=== PATIENT | female | born 1940 | race Caucasian/White ===

== ENCOUNTER 2017-02-23 07:23 | Day surgery (SDC) | payer MEDICARE, BC ==
[~2017-02-23 07:23] MED LIST: Midazolam 1 MG/ML 2 ML SDV ONE; Propofol 200 MG/20 ML SDV ONE; fentaNYL 100 MCG/2 ML SDV ONE
[2017-02-23] MEDS ORDERED: Dextrose 5%-Lactated Ringers 1,000 ML IV SCH (08:00)
[2017-02-23] MEDS ORDERED: Glycopyrrolate 0.2 MG/ML 2 ML SYRINGE IVPUSH ONE (08:45)
[2017-02-23 11:08] VITALS: BP 150/91
--- NOTE | 2017-03-02 09:29 | OR ---
DATE OF PROCEDURE: 02/23/2017 PREOPERATIVE DIAGNOSIS: Dysphagia referable to the distal esophagus. POSTOPERATIVE DIAGNOSES: 1. Dysphagia associated with intact Christophe fundoplication effect without inflammation or stricturing at the distal esophagus. 2. Mild antral gastritis. OPERATIVE PROCEDURE: Esophagogastroduodenoscopy with: 1. Biopsies of antrum for CLOtest (37864). 2. Dilation of distal esophagus (87858). ANESTHESIA: IV sedation. INDICATION FOR PROCEDURE: This is a 76-year-old status post Christophe fundoplication. Recently, she had some increasing problems with dysphagia referable to the distal esophagus. Plan is to proceed with upper GI endoscopy with biopsies and/or dilation as indicated. Potential risks including bleeding and perforation were discussed, and the patient wishes to proceed. DETAILS OF PROCEDURE: The patient was taken to the operating room and placed in a left lateral decubitus position. IV sedation was administered, after which the upper GI endoscope was passed orally through the length of the esophagus into the stomach with retroflexion view of the fundus, and thereafter through the pyloric channel and into the duodenum. Findings included normal hypopharynx, larynx, upper esophageal sphincter, and esophageal body. There was no dilation or retained food within the esophagus. At the EG junction, a Christophe effect was present, but this was completely soft and pliable, and the scope easily was able to inflate the distal esophagus, such that one could peer from that point into the stomach through the area of fundoplication. There was no significant inflammation at the fundoplication either. With the scope in the stomach, it was then retroflexed and revealed an intact Christophe effect. The remainder of the stomach showed some mild redness in the pre- pyloric area. Pyloric channel and duodenum to the junction of the third and fourth portions were unremarkable. At this point, biopsy was obtained from the antrum and sent for CLOtest for H. pylori. Minimal bleeding from the biopsy sites was seen. Due to the fact that esophageal dilation might somehow improve the dysphagia, a guidewire was passed into the stomach and the gastroscope was withdrawn, leaving the guidewire in place. Over this, a 54-[place] Savary dilator was placed across the esophagus and into the stomach and held there for one minute. The dilator and wire were then removed and the procedure concluded. There were no evident complications. We will have Dietary see the patient regarding eating behavior. Given there was no stricturing, narrowing, or significant inflammation at the site of Christophe fundoplication, she probably needs to be chewing her food somewhat more thoroughly, and drinking some liquids along with meals and such, to facilitate the passage of the food. Rodney Ramirez MD /[id number]
== END 2017-02-23 11:45 | disposition home or self-care (01) ==
LOC: JP.SDS 07:23
PROVIDERS: ATTEND Surgery
DX: K29.50 Unspecified chronic gastritis without bleeding (principal); I25.10 Atherosclerotic heart disease of native coronary artery without angina pectoris; I10 Essential (primary) hypertension; E78.5 Hyperlipidemia, unspecified; E11.9 Type 2 diabetes mellitus without complications; G47.33 Obstructive sleep apnea (adult) (pediatric); J44.9 Chronic obstructive pulmonary disease, unspecified; Z98.890 Other specified postprocedural states; Z88.1 Allergy status to other antibiotic agents; Z88.2 Allergy status to sulfonamides; Z88.8 Allergy status to other drugs, medicaments and biological substances
CPT/HCPCS: 43239; 43248; 87081; J2250; J2704; J3010; J7042

== ENCOUNTER 2017-10-26 10:27 | Emergency (ER) | payer MEDICARE, BC ==
[2017-10-26] MEDS ORDERED: Ertapenem 1 GM in Sodium Chloride 0.9% 100 ML IV ONE (11:30)
[2017-10-26] MEDS ORDERED: Lactated Ringers 1,000 ML IV SCH (11:45)
--- NOTE | 2017-10-26 11:49 | EDM.PDOC ---
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 She states over the last couple days she has developed diarrhea significantly worse starting this morning she has had 8 loose stools states she is so weak she cannot take care of herself and wants to be admitted to the hospital. Review of systems is difficult to obtain as she is positive for every sign or symptom admits to having teeth itching or discomfort with her dentures Left Feet Pain Score (Numeric/FACES): 3 - Related Data Allergies Allergy/AdvReac Type Severity Reaction Status Date / Time Sulfa (Sulfonamide Allergy Intermediate Shortness Verified 10/26/17 10:54 Antibiotics) of Breath blue dye Allergy Cannot Verified 10/26/17 10:54 Remember glimepiride [From Amaryl] Allergy Wheezing Verified 10/26/17 10:54 pravastatin Allergy Abdominal Verified 10/26/17 10:54 Pain Zczceqr-Dey-Cua Reductase Allergy Cannot Verified 10/26/17 10:54 Inhibitor Remember azithromycin AdvReac Diarrhea Verified 10/26/17 10:54 metformin AdvReac Diarrhea Verified 10/26/17 10:54 tetracycline [Tetracycline] AdvReac Nausea and Verified 10/26/17 10:54 Vomiting Home Meds: Home Meds Acetaminophen/Diphenhydramine [Tylenol Pm Ex-Strength Gelcap] 1 each PO BEDTIME 01/06/14 [History] Azelastine [Astelin Nasal Soln] 1 inhalation REFUGIO BID PRN 01/06/14 [History] Levalbuterol HCl [Xopenex] 0.3 mg NEB BEDTIME PRN 01/06/14 [History] Levalbuterol Tartrate [Xopenex HFA Inh] 2 puff REFUGIO Q4HR PRN 01/06/14 [History] Levothyroxine Sodium [Levoxyl] 50 mcg PO DAILY 01/06/14 [History] Metoprolol Tartrate [Lopressor] 200 mg PO BID 01/06/14 [History] Montelukast [Singulair] 10 mg PO DAILY PRN 01/06/14 [History] SUMAtriptan [Imitrex] 50 mg PO BID PRN 01/06/14 [History] clonazePAM [Klonopin] 0.5 mg PO BID PRN 01/06/14 [History] Loratadine [Claritin] 10 mg PO DAILY PRN 11/24/14 [History] Sertraline [Zoloft] 100 mg PO DAILY 11/24/14 [History] Atropine/Diphenoxylate [Diphenoxylate-Atropine] 1 tab PO DAILY PRN 02/22/16 [ History] Bismuth Subsalicylate [Bismatrol] 2 tab PO DAILY PRN 02/22/16 [History] Fluticasone Propionate [Flonase] 2 spray REFUGIO DAILY 02/22/16 [History] Fluticasone Propionate [Flovent] 2 puff INH BID PRN 02/22/16 [History] Nortriptyline 10 mg PO BEDTIME 10/26/17 [History] Past Medical History HEENT History: Reports: Allergic Rhinitis, Cataract, Impaired Vision, Sinusitis Cardiovascular History: Reports: CAD, Heart Murmur, Hypertension, [place] Respiratory History: Reports: Asthma, Bronchitis, Recurrent, COPD, Sleep Apnea Gastrointestinal History: Reports: Chronic Diarrhea, Colon Polyp, Diverticulosis , GERD, Hepatitis, Hiatal Hernia Other Gastrointestinal History: colitis 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: Polycystic Ovaries, Musculoskeletal History: Reports: Arthritis, Back Pain, Chronic, Fibromyalgia, Osteoarthritis Neurological History: Reports: Migraines, Neuropathy, Diabetic, Neuropathy, Peripheral Endocrine/Metabolic History: Reports: Diabetes, Type II, Hypothyroidism, Obesity /BMI 30+ Hematologic History: Reports: Blood Transfusion(s) Oncologic (Cancer) History: Reports: Breast - Infectious Disease History Infectious Disease History: Reports: C-Difficile, Measles, Mumps, Rubella, Shingles - Past Surgical History HEENT Surgical History: Reports: Cataract Surgery GI Surgical History: Reports: Colonoscopy, EGD, Christophe Fundoplication Female Surgical History: Reports: Breast Biopsy, Section, Hysterectomy, Mastectomy Musculoskeletal Surgical History: Reports: Arthroscopic Knee, Knee Replacement Oncologic Surgical History: Reports: Mastectomy Other Oncologic Surgeries/Procedures: both Social & Family History - Tobacco Use Smoking Status *Q: Never Smoker Second Hand Smoke Exposure: No - Caffeine Use Caffeine Use: Reports: Coffee - Alcohol Use Days Per Week of Alcohol Use: 0 - Recreational Drug Use Recreational Drug Use: No ED ROS GENERAL - Review of Systems Review Of Systems: Unable To Obtain (Positive for a review of systems difficult to obtain) ED EXAM, GI/ABD - Physical Exam Exam: See Below Text/Narrative:: General: Elderly female, not in any distress, alert and oriented x3 HEENT: head is atraumatic normocephalic, eyes pupils equal round reactive to light, sclera clear no conjunctivitis appreciated. Ears tympanic membranes clear and [place] landmarks and light reflex are present bilaterally canals are clear. Nose no septal deviation, nares are clear, no blood present. Mouth mucosa is moist and pink no erythema or exudate noted in soft palate, tongue is midline uvula is midline, dentures in place Neck: Supple no thyromegaly no tracheal deviation. Nodes: Cervical nodes subclavicular nodes nontender no palpable lymphadenopathy noted. Lungs: clear to auscultation bilaterally with symmetrical respirations, no adventitious noise appreciated. CV: Regular rate and rhythm S1 and S2 appreciated no murmurs rubs or gallops noted. Abdomen: Soft, nontender, no palpable masses or organomegaly appreciated, no distention no guarding bowel sounds are present, . Neuro: Cranial nerves II through XII grossly intact Skin: Warm and dry, intact chronic wound left ankle Extremities: No lower extremity edema appreciated, left ankle is dressed and packed daily Course - Vital Signs Last Recorded V/S: Last Vital Signs Temp 98.1 F 10/26/17 14:46 Pulse 97 10/26/17 14:46 Resp 17 10/26/17 14:46 BP 177/78 H 10/26/17 14:46 Pulse Ox 97 10/26/17 14:46 - Orders/Labs/Meds Orders: Active Orders 24 hr Category Date Time Status Lactated Ringers [Ringers, Lactated] 1,000 ml Med 10/26/17 11:45 Active IV ASDIRECTED Medication Orders Lactated Ringer's (Ringers, Lactated) 1,000 mls @ 500 mls/hr IV ASDIRECTED TEDDY Last Admin: 10/26/17 12:07 Dose: 500 mls/hr Labs: Laboratory Tests 10/26/17 10/26/17 10/26/17 Range/Units 11:43 11:43 11:43 WBC 9.4 (4.5-11.0) K/uL RBC 4.43 (3.30-5.50) M/uL Hgb 12.9 (12.0-15.0) g/dL Hct 39.4 (36.0-48.0) % MCV 89 (80-98) fL MCH 29 (27-31) pg MCHC 33 (32-36) % Plt Count 206 (150-400) K/uL Neut % (Auto) 70 H (36-66) % Lymph % (Auto) 16 L (24-44) % [place] % (Auto) 11 H (2-6) % Eos % (Auto) 3 (2-4) % Baso % (Auto) 1 (0-1) % Sodium 137 L (140-148) mmol/L Potassium 3.9 (3.6-5.2) mmol/L Chloride 101 (100-108) mmol/L Carbon Dioxide 27 (21-32) mmol/L Anion Gap 12.9 (5.0-14.0) mmol/L BUN 15 (7-18) mg/dL Creatinine 0.7 (0.6-1.0) mg/dL Est Cr Clr Drug Dosing 52.40 mL/min Estimated GFR (MDRD) > 60 (>60) Glucose 104 (74-106) mg/dL Lactic Acid 1.8 (0.4-2.0) mmol/L Calcium 9.9 (8.5-10.1) mg/dL Total Bilirubin 0.4 (0.2-1.0) mg/dL AST 20 (15-37) U/L ALT 21 (12-78) U/L Alkaline Phosphatase 62 (46-116) U/L Troponin I (0.000-0.056) ng/mL Total Protein 7.9 (6.4-8.2) g/dL Albumin 3.8 (3.4-5.0) g/dL Globulin 4.1 H (2.3-3.5) g/dL Albumin/Globulin Ratio 0.9 L (1.2-2.2) Lipase 213 (73-393) U/L Urine Color Urine Appearance Urine pH (4.5-8.0) Ur Specific [place] (1.008-1.030) Urine Protein (NEGATIVE) mg/dL Urine Glucose (UA) (NEGATIVE) mg/dL Urine Ketones (NEGATIVE) mg/dL Urine Occult Blood (NEGATIVE) Urine Nitrite (NEGATIVE) Urine Bilirubin (NEGATIVE) Urine Urobilinogen (NORMAL) mg/dL Ur Leukocyte Esterase (NEGATIVE) Urine RBC (0-5) Urine WBC (0-5) Ur Epithelial Cells Amorphous Sediment Urine Bacteria Urine Mucus 10/26/17 10/26/17 Range/Units 11:46 12:01 WBC (4.5-11.0) K/uL RBC (3.30-5.50) M/uL Hgb (12.0-15.0) g/dL Hct (36.0-48.0) % MCV (80-98) fL MCH (27-31) pg MCHC (32-36) % Plt Count (150-400) K/uL Neut % (Auto) (36-66) % Lymph % (Auto) (24-44) % [place] % (Auto) (2-6) % Eos % (Auto) (2-4) % Baso % (Auto) (0-1) % Sodium (140-148) mmol/L Potassium (3.6-5.2) mmol/L Chloride (100-108) mmol/L Carbon Dioxide (21-32) mmol/L Anion Gap (5.0-14.0) mmol/L BUN (7-18) mg/dL Creatinine (0.6-1.0) mg/dL Est Cr Clr Drug Dosing mL/min Estimated GFR (MDRD) (>60) Glucose (74-106) mg/dL Lactic Acid (0.4-2.0) mmol/L Calcium (8.5-10.1) mg/dL Total Bilirubin (0.2-1.0) mg/dL AST (15-37) U/L ALT (12-78) U/L Alkaline Phosphatase (46-116) U/L Troponin I < 0.017 (0.000-0.056) ng/mL Total Protein (6.4-8.2) g/dL Albumin (3.4-5.0) g/dL Globulin (2.3-3.5) g/dL Albumin/Globulin Ratio (1.2-2.2) Lipase (73-393) U/L Urine Color Yellow Urine Appearance Clear Urine pH 6.0 (4.5-8.0) Ur Specific [place] 1.010 (1.008-1.030) Urine Protein Negative (NEGATIVE) mg/dL Urine Glucose (UA) Normal (NEGATIVE) mg/dL Urine Ketones Negative (NEGATIVE) mg/dL Urine Occult Blood Negative (NEGATIVE) Urine Nitrite Negative (NEGATIVE) Urine Bilirubin Negative (NEGATIVE) Urine Urobilinogen Normal (NORMAL) mg/dL Ur Leukocyte Esterase Negative (NEGATIVE) Urine RBC Not seen (0-5) Urine WBC Not seen (0-5) Ur Epithelial Cells Not seen Amorphous Sediment Not seen Urine Bacteria Not seen Urine Mucus Not seen Meds: Medications Generic Name Dose Route Start Last Admin Trade Name Freq PRN Reason Stop Dose Admin Lactated Ringer's 1,000 mls @ 500 mls/hr 10/26/17 11:45 10/26/17 12:07 Ringers, Lactated IV 500 mls/hr ASDIRECTED TEDDY Administration Discontinued Medications Generic Name Dose Route Start Last Admin Trade Name Freq PRN Reason Stop Dose Admin Acetaminophen 650 mg 10/26/17 12:33 10/26/17 12:46 Tylenol PO 10/26/17 12:34 650 mg NOW ONE Administration Heparin Sodium (Porcine) 500 units 10/26/17 11:45 Heparin Lock Flush 100 Units/Ml IVPUSH 10/26/17 11:46 ONETIME ONE Ertapenem 1 gm/ Sodium 100 mls @ 200 mls/hr 10/26/17 11:30 10/26/17 11:37 Chloride IV 10/26/17 11:59 200 mls/hr ONETIME ONE Administration Departure - Departure Time of Disposition: 15:25 Disposition: Home, Self-Care 01 Condition: Fair Clinical Impression: Chronic wound of extremity - Discharge Information Referrals: Remy Myers MD [Primary Care Provider] - Forms: ED Department Discharge Additional Instructions: Continue current medications, continue outpatient treatment with antibiotics, keep your follow-up appointment with your primary care provider - My Orders Last 24 Hours: My Active Orders 10/26/17 11:45 Lactated Ringers [Ringers, Lactated] 1,000 ml IV ASDIRECTED - Assessment/Plan Last 24 Hours: My Active Orders 10/26/17 11:45 Lactated Ringers [Ringers, Lactated] 1,000 ml IV ASDIRECTED Plan: Assessment Acuity = acute Site and laterality = chronic wound left leg Etiology = common location of diabetes mellitus type 2 and peripheral vascular disease Manifestations = weakness Location of injury = Home Lab values = CBC, CMP, urinalysis unremarkable chest x-ray shows PICC line proper placement Plan Did have discharge planning, and visit with her to discuss options for other treatment modalities including hospital admission for weakness, long-term placement for rehabilitation, home care due to inability to care for self at home. She elected to return to home without any the services and will continue to follow up with outpatient services for her IV antibiotics Patient was in agreement with the plan all questions were answered, they were instructed to return to the emergency department or call for worsening symptoms. This note was dictated using Shot[employer] voice recognition software please call with any questions.
[2017-10-26] MEDS ORDERED: Acetaminophen 325 MG Tab PO ONE (12:33)
[2017-10-26 14:47] VITALS: BP 177/78
--- NOTE | 2017-10-26 14:48 | CR ---
Chest 2V INDICATION: picc line placement COMPARISON: CT chest 09/27/2009. Chest x-ray 11/11/2008. FINDINGS: Two views. Heart size normal. Left upper extremity PICC line in good position in the low er SVC. No infiltrates or pleural effusions. IMPRESSION: Nothing acute. PICC line in good position in the lower SVC
== END 2017-10-26 15:45 | disposition home or self-care (01) ==
LOC: JP.ED 10:27
DX: T81.89XA Other complications of procedures, not elsewhere classified, initial encounter (principal); E11.69 Type 2 diabetes mellitus with other specified complication; E11.51 Type 2 diabetes mellitus with diabetic peripheral angiopathy without gangrene; E11.42 Type 2 diabetes mellitus with diabetic polyneuropathy; E03.9 Hypothyroidism, unspecified; I10 Essential (primary) hypertension; I25.10 Atherosclerotic heart disease of native coronary artery without angina pectoris; J44.9 Chronic obstructive pulmonary disease, unspecified; Z88.1 Allergy status to other antibiotic agents; Z88.2 Allergy status to sulfonamides; Z88.8 Allergy status to other drugs, medicaments and biological substances; Z91.048 Other nonmedicinal substance allergy status; Z79.899 Other long term (current) drug therapy; X58.XXXA Exposure to other specified factors, initial encounter
CPT/HCPCS: 36415; 71020; 80053; 81001; 83605; 83690; 84484; 85025; 87493; 96361; 96365; 96375; 99284; A9270; J1335; J1642; J7030; J7120

== ENCOUNTER 2018-02-01 11:45 | Emergency (ER) | payer MEDICARE, BC ==
--- NOTE | 2018-02-01 12:38 | EDM.PDOC ---
ED HPI GENERAL MEDICAL PROBLEM - General Chief Complaint: Cardiovascular Problem Stated Complaint: SHORTNESS OF BREATH PRESSURE IS HIGH Time Seen by Provider: 02/01/18 12:38 Source of Information: Reports: Patient History Limitations: Reports: No Limitations - History of Present Illness INITIAL COMMENTS - FREE TEXT/NARRATIVE: pt arrived feeling sob and having some tingling in her arms bilaterally. Her bp has been elevated alot. She has had a headache at the top of her head. She is om lopressor 200mg twice daily for her bp. She has not noted increased ankle swelling. Onset: Today Duration: Hour(s):, Getting Worse Location: Reports: Head, Chest Associated Symptoms: Reports: Shortness of Breath, Other (pt has a history of anginia but she has not had recent chest pain, ) - Related Data Allergies Allergy/AdvReac Type Severity Reaction Status Date / Time Sulfa (Sulfonamide Allergy Intermediate Shortness Verified 02/01/18 12:22 Antibiotics) of Breath blue dye Allergy Cannot Verified 02/01/18 12:22 Remember glimepiride [From Amaryl] Allergy Wheezing Verified 02/01/18 12:22 pravastatin Allergy Abdominal Verified 02/01/18 12:22 Pain Vwczdwv-[id number]-Hio Reductase Allergy Cannot Verified 02/01/18 12:22 Inhibitor Remember azithromycin AdvReac Diarrhea Verified 02/01/18 12:22 metformin AdvReac Diarrhea Verified 02/01/18 12:22 tetracycline [Tetracycline] AdvReac Nausea and Verified 02/01/18 12:22 Vomiting Home Meds: Home Meds Acetaminophen/Diphenhydramine [Tylenol Pm Ex-Strength Gelcap] 1 each PO BEDTIME 01/06/14 [History] Levalbuterol HCl [Xopenex] 0.3 mg NEB BEDTIME PRN 01/06/14 [History] Levalbuterol Tartrate [Xopenex HFA Inh] 2 puff REFUGIO Q4HR PRN 01/06/14 [History] Levothyroxine Sodium [Levoxyl] 50 mcg PO DAILY 01/06/14 [History] Metoprolol Tartrate [Lopressor] 200 mg PO QID 01/06/14 [History] Montelukast [Singulair] 10 mg PO DAILY PRN 01/06/14 [History] SUMAtriptan [Imitrex] 50 mg PO BID PRN 01/06/14 [History] clonazePAM [Klonopin] 0.5 mg PO BID PRN 01/06/14 [History] Loratadine [Claritin] 10 mg PO DAILY PRN 11/24/14 [History] Bismuth Subsalicylate [Bismatrol] 2 tab PO DAILY PRN 02/22/16 [History] Fluticasone Propionate [Flonase] 2 spray REFUGIO DAILY 02/22/16 [History] Fluticasone Propionate [Flovent] 2 puff INH BID PRN 02/22/16 [History] Nortriptyline 10 mg PO BEDTIME 10/26/17 [History] Past Medical History HEENT History: Reports: Allergic Rhinitis, Cataract, Impaired Vision, Sinusitis Cardiovascular History: Reports: CAD, Heart Murmur, Hypertension, [place] Respiratory History: Reports: Asthma, Bronchitis, Recurrent, COPD, Sleep Apnea Gastrointestinal History: Reports: Chronic Diarrhea, Colon Polyp, Diverticulosis , GERD, Hepatitis, Hiatal Hernia Other Gastrointestinal History: colitis [employer]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: Polycystic Ovaries, Musculoskeletal History: Reports: Arthritis, Back Pain, Chronic, Fibromyalgia, Osteoarthritis Neurological History: Reports: Migraines, Neuropathy, Diabetic, Neuropathy, Peripheral Psychiatric History: Reports: Anxiety, Depression Endocrine/Metabolic History: Reports: Diabetes, Type II, Hypothyroidism, Obesity /BMI 30+ Hematologic History: Reports: Blood Transfusion(s) Oncologic (Cancer) History: Reports: Breast - Infectious Disease History Infectious Disease History: Reports: C-Difficile, Measles, Mumps, Rubella, Shingles - Past Surgical History HEENT Surgical History: Reports: Cataract Surgery GI Surgical History: Reports: Colonoscopy, EGD, Christophe Fundoplication Musculoskeletal Surgical History: Reports: Arthroscopic Knee, Knee Replacement Oncologic Surgical History: Reports: Mastectomy Other Oncologic Surgeries/Procedures: both Dermatological Surgical History: Reports: Other (See Below) Social & Family History - Tobacco Use Smoking Status *Q: Never Smoker Second Hand Smoke Exposure: No - Caffeine Use Caffeine Use: Reports: Coffee - Alcohol Use Days Per Week of Alcohol Use: 0 - Recreational Drug Use Recreational Drug Use: No ED ROS GENERAL - Review of Systems Review Of Systems: See Below Constitutional: Reports: No Symptoms HEENT: Reports: No Symptoms Respiratory: Reports: Shortness of Breath, Cough Cardiovascular: Reports: No Symptoms Endocrine: Reports: No Symptoms GI/Abdominal: Reports: No Symptoms : Reports: No Symptoms Musculoskeletal: Reports: No Symptoms Skin: Reports: No Symptoms Neurological: Reports: No Symptoms Psychiatric: Reports: Anxiety ED EXAM, GENERAL - Physical Exam Exam: See Below Free Text/Narrative:: pt has not had any anginia recently. Today she is concerned that she is more sob and her bp has been running alot higher. Exam Limited By: No Limitations General Appearance: Alert, Anxious, Mild Distress, Other (pupils are equal and reactive. Her bp was followed. She had not taken any meds today for her bp. It did come down to 160/95/ ) Ears: Normal TMs Nose: Normal Inspection Throat/Mouth: Normal Inspection Head: Atraumatic Neck: Normal Inspection Respiratory/Chest: No Respiratory Distress Cardiovascular: Regular Rate, Rhythm GI/Abdominal: Soft, Non-Tender (Female) Exam: Deferred Rectal (Female) Exam: Deferred Back Exam: Normal Inspection Extremities: Other ( No sig edema could be seen. ) Neurological: Alert, Oriented, Normal Cognition Psychiatric: Anxious Course - Vital Signs Last Recorded V/S: Last Vital Signs Temp 36.3 C 02/01/18 12:18 Pulse 69 02/01/18 13:17 Resp 18 02/01/18 13:17 BP 169/75 H 02/01/18 13:17 Pulse Ox 95 02/01/18 13:17 - Orders/Labs/Meds Labs: Laboratory Tests 02/01/18 02/01/18 02/01/18 Range/Units 12:47 12:47 12:47 WBC 5.9 (4.5-11.0) K/uL RBC 4.34 (3.30-5.50) M/uL Hgb 12.7 (12.0-15.0) g/dL Hct 39.6 (36.0-48.0) % MCV 91 (80-98) fL MCH 29 (27-31) pg MCHC 32 (32-36) % Plt Count 201 (150-400) K/uL Neut % (Auto) 58 (36-66) % Lymph % (Auto) 28 (24-44) % [place] % (Auto) 10 H (2-6) % Eos % (Auto) 3 (2-4) % Baso % (Auto) 1 (0-1) % Sodium 144 (140-148) mmol/L Potassium 4.5 (3.6-5.2) mmol/L Chloride 104 (100-108) mmol/L Carbon Dioxide 28 (21-32) mmol/L Anion Gap 12.0 (5.0-14.0) mmol/L BUN 15 (7-18) mg/dL Creatinine 0.9 (0.6-1.0) mg/dL Est Cr Clr Drug Dosing 40.75 mL/min Estimated GFR (MDRD) > 60 (>60) Glucose 154 H (74-106) mg/dL Calcium 9.5 (8.5-10.1) mg/dL Total Bilirubin 0.4 (0.2-1.0) mg/dL AST 16 (15-37) U/L ALT 21 (12-78) U/L Alkaline Phosphatase 67 (46-116) U/L Troponin I < 0.017 (0.000-0.056) ng/mL NT-Pro-B Natriuret Pep 137 (5-450) pg/mL Total Protein 7.8 (6.4-8.2) g/dL Albumin 4.0 (3.4-5.0) g/dL Globulin 3.8 H (2.3-3.5) g/dL Albumin/Globulin Ratio 1.1 L (1.2-2.2) Urine Color Urine Appearance Urine pH (4.5-8.0) Ur Specific [place] (1.008-1.030) Urine Protein (NEGATIVE) mg/dL Urine Glucose (UA) (NEGATIVE) mg/dL Urine Ketones (NEGATIVE) mg/dL Urine Occult Blood (NEGATIVE) Urine Nitrite (NEGATIVE) Urine Bilirubin (NEGATIVE) Urine Urobilinogen (NORMAL) mg/dL Ur Leukocyte Esterase (NEGATIVE) Urine RBC (0-5) Urine WBC (0-5) Ur Epithelial Cells Amorphous Sediment Urine Bacteria Urine Mucus 02/01/18 Range/Units 13:16 WBC (4.5-11.0) K/uL RBC (3.30-5.50) M/uL Hgb (12.0-15.0) g/dL Hct (36.0-48.0) % MCV (80-98) fL MCH (27-31) pg MCHC (32-36) % Plt Count (150-400) K/uL Neut % (Auto) (36-66) % Lymph % (Auto) (24-44) % [place] % (Auto) (2-6) % Eos % (Auto) (2-4) % Baso % (Auto) (0-1) % Sodium (140-148) mmol/L Potassium (3.6-5.2) mmol/L Chloride (100-108) mmol/L Carbon Dioxide (21-32) mmol/L Anion Gap (5.0-14.0) mmol/L BUN (7-18) mg/dL Creatinine (0.6-1.0) mg/dL Est Cr Clr Drug Dosing mL/min Estimated GFR (MDRD) (>60) Glucose (74-106) mg/dL Calcium (8.5-10.1) mg/dL Total Bilirubin (0.2-1.0) mg/dL AST (15-37) U/L ALT (12-78) U/L Alkaline Phosphatase (46-116) U/L Troponin I (0.000-0.056) ng/mL NT-Pro-B Natriuret Pep (5-450) pg/mL Total Protein (6.4-8.2) g/dL Albumin (3.4-5.0) g/dL Globulin (2.3-3.5) g/dL Albumin/Globulin Ratio (1.2-2.2) Urine Color Yellow Urine Appearance Slightly cloudy Urine pH 5.0 (4.5-8.0) Ur Specific [place] 1.020 (1.008-1.030) Urine Protein Negative (NEGATIVE) mg/dL Urine Glucose (UA) Normal (NEGATIVE) mg/dL Urine Ketones Negative (NEGATIVE) mg/dL Urine Occult Blood Negative (NEGATIVE) Urine Nitrite Negative (NEGATIVE) Urine Bilirubin Negative (NEGATIVE) Urine Urobilinogen Normal (NORMAL) mg/dL Ur Leukocyte Esterase Negative (NEGATIVE) Urine RBC 0-5 (0-5) Urine WBC Not seen (0-5) Ur Epithelial Cells Rare Amorphous Sediment Moderate Urine Bacteria Rare Urine Mucus Moderate Meds: Medications Discontinued Medications Generic Name Dose Route Start Last Admin Trade Name Freq PRN Reason Stop Dose Admin Metoprolol Tartrate 200 mg 02/01/18 13:36 02/01/18 13:45 Lopressor PO 02/01/18 13:37 Not Given ONETIME ONE - Re-Assessments/Exams Free Text/Narrative Re-Assessment/Exam: 02/01/18 14:11 pt had a normal trop, her chest xray showed mild chronic lung changes, her ekg looked good. Her bs was 154. Her electrolytes and kidney funtion looked good. She was given 200mg of her lopressor. Departure - Departure Time of Disposition: 13:48 Disposition: Home, Self-Care 01 Condition: Fair Clinical Impression: Hypertension, Diabetes Instructions: Hypertension, [id number] Referrals: Remy Myers MD [Primary Care Provider] - Forms: ED Department Discharge Care Plan Goals: cont same meds, encourage exercise as tolerated, appt with Dr Myers in 1 week, add zestaril 2.5 mg mid day with food for bp.
[2018-02-01 13:21] VITALS: BP 169/75
[2018-02-01] MEDS ORDERED: Metoprolol Tartrate 50 MG Tab PO ONE (13:36)
--- NOTE | 2018-02-01 13:39 | CR ---
Chest 2V HISTORY: Shortness of breath COMPARISON: 10/26/2017. FINDINGS: Cardiac size and pulmonary vessels normal. No focal infiltrates or effusions. Impression: No acute pulmonary disease.
== END 2018-02-01 14:00 | disposition home or self-care (01) ==
LOC: JP.ED 11:45
DX: I10 Essential (primary) hypertension (principal); E11.9 Type 2 diabetes mellitus without complications; I25.2 Old myocardial infarction; J44.9 Chronic obstructive pulmonary disease, unspecified; E66.9 Obesity, unspecified; Z88.2 Allergy status to sulfonamides; Z88.8 Allergy status to other drugs, medicaments and biological substances; Z91.041 Radiographic dye allergy status; Z79.899 Other long term (current) drug therapy
CPT/HCPCS: 36415; 71046; 71046-26; 80053; 81001; 83880; 84484; 85025; 93005; 93010; 99285-25

== ENCOUNTER 2019-02-07 08:07 | Day surgery (SDC) | payer MEDICARE, BC ==
[~2019-02-07 08:07] MED LIST changes: -Midazolam 1 MG/ML 2 ML SDV ONE; -Propofol 200 MG/20 ML SDV ONE
[2019-02-07] MEDS ORDERED: Dextrose 5%-Lactated Ringers 1,000 ML IV SCH (08:45)
[2019-02-07] MEDS ORDERED: Ampicillin/Sulbactam Na 3 GM in Sodium Chloride 0.9% 100 ML IV ONE (09:30)
[2019-02-07] MEDS ORDERED: Propofol 200 MG/20 ML SDV ONE (10:23)
[2019-02-07 11:46] VITALS: BP 168/79
--- NOTE | 2019-02-14 12:13 | OR ---
DATE OF PROCEDURE: 02/07/2019 PREOPERATIVE DIAGNOSIS: Dysphagia, status post Christophe fundoplication. POSTOPERATIVE DIAGNOSES: 1. Dysphagia, status post Christophe fundoplication with otherwise intact fundoplication. 2. Mild antral gastritis. OPERATIVE PROCEDURE: Esophagogastroduodenoscopy with: 1. Antral biopsies for CLOtest (08284). 2. Dilation of esophagus (21886). ANESTHESIA: IV sedation. INDICATIONS FOR PROCEDURE: This is a 78-year-old status post a laparoscopic Christophe fundoplication in 2013. She developed some dysphagia in around 2016 and at that time underwent an upper endoscopy with dilation with satisfactory relief of the dysphagia up until recently and she now presents with some increased dysphagia referable to the distal esophagus. Plan is to proceed with upper GI endoscopy with biopsies and/or dilation as indicated. Potential risks including bleeding and perforation were discussed, and the patient wishes to proceed. DETAILS OF PROCEDURE: The patient was taken to the operating room and after being placed in the left lateral decubitus position, IV sedation was administered. Upper GI endoscope was passed orally through the length of the esophagus into the stomach with retroflexion view of the fundus, thereafter through the pyloric channel and into the proximal duodenum. FINDINGS: Included normal hypopharynx, larynx, upper esophageal sphincter, and esophageal body. At the EG junction, there was no gross inflammation. The Christophe wrap was at this time normally located over the area of the esophagogastric junction, and the scope easily passed through that area, and the EG junction did not open up nicely with air insufflation indicating of significant anatomic stricture. There was no plaquing or other signs of neoplastic change. Within the stomach, there were some patchy reddened areas in the antral region, consistent with some mild antral gastritis. The pyloric channel and duodenum to the junction of the third and fourth portions were unremarkable. At this point, biopsies were obtained from the antrum and sent for CLOtest for H. pylori. Following this, a guidewire was then passed into the stomach, and the gastroscope then withdrawn leaving the guidewire in place. Following this, a 54-Italian Savary dilator was passed over the wire and held in position for 1 minute and at that point, the dilator and wire were removed and the procedure concluded. The patient was taken to the recovery room in satisfactory condition. Recommendation would be to repeat the endoscopy and dilation of esophagus as needed on a p.r.n. basis. Rodney Ramirez MD /[id number]
== END 2019-02-07 11:49 | disposition home or self-care (01) ==
LOC: JP.SDS 08:07
PROVIDERS: ATTEND Surgery
DX: K29.70 Gastritis, unspecified, without bleeding (principal); R13.10 Dysphagia, unspecified; I25.10 Atherosclerotic heart disease of native coronary artery without angina pectoris; I10 Essential (primary) hypertension; E11.9 Type 2 diabetes mellitus without complications; E78.5 Hyperlipidemia, unspecified; E03.9 Hypothyroidism, unspecified; G47.33 Obstructive sleep apnea (adult) (pediatric); Z99.89 Dependence on other enabling machines and devices; Z98.890 Other specified postprocedural states
CPT/HCPCS: 43239; 43248; 87081; J0295; J2704; J3010; J7030; J7042

== ENCOUNTER 2019-02-09 10:39 | Emergency (ER) | payer MEDICARE, BC ==
--- NOTE | 2019-02-09 12:01 | EDM.PDOC ---
ED HPI GENERAL MEDICAL PROBLEM - General Chief Complaint: Cardiovascular Problem Stated Complaint: HIGH BP Time Seen by Provider: 02/09/19 11:15 Source of Information: Reports: Patient History Limitations: Reports: No Limitations - History of Present Illness INITIAL COMMENTS - FREE TEXT/NARRATIVE: This lady comes in complaining of uncontrolled hypertension. Her blood pressure at home was something in the range of 200. This morning she took her metoprolol and lisinopril as usual did not miss any medications tonight. She said occasionally she's had some episodes of loss of control. She had esophageal dilatation 2 days ago apparently she's had a Christophe procedure before. She tells me the blood pressure was high on Thursday 8 days ago she was seen in clinic blood pressure listed then 138/76. She said this morning she has a little bit of a headache. She's not having chest pain palpitations or any kind of stroke symptoms. - Related Data Allergies Allergy/AdvReac Type Severity Reaction Status Date / Time Sulfa (Sulfonamide Allergy Intermediate Shortness Verified 02/09/19 10:52 Antibiotics) of Breath aspirin Allergy Nausea Verified 02/09/19 10:52 blue dye Allergy Cannot Verified 02/09/19 10:52 Remember glimepiride [From Amaryl] Allergy Wheezing Verified 02/09/19 10:52 pravastatin Allergy Abdominal Verified 02/09/19 10:52 Pain Pzsirej-Ank-Anc Reductase Allergy Cannot Verified 02/09/19 10:52 Inhibitor Remember azithromycin AdvReac Diarrhea Verified 02/09/19 10:52 metformin AdvReac Diarrhea Verified 02/09/19 10:52 tetracycline [Tetracycline] AdvReac Nausea and Verified 02/09/19 10:52 Vomiting Home Meds: Home Meds Acetaminophen/Diphenhydramine [Tylenol Pm Ex-Strength Gelcap] 1 each PO BEDTIME 01/06/14 [History] Levalbuterol HCl [Xopenex] 0.3 mg NEB Q8H PRN 01/06/14 [History] Levalbuterol Tartrate [Xopenex HFA Inh] 2 puff REFUGIO Q4HR PRN 01/06/14 [History] Levothyroxine Sodium [Levoxyl] 50 mcg PO DAILY 01/06/14 [History] Metoprolol Tartrate [Lopressor] 200 mg PO BID 01/06/14 [History] Montelukast [Singulair] 10 mg PO DAILY 01/06/14 [History] SUMAtriptan [Imitrex] 50 mg PO ASDIRECTED PRN 01/06/14 [History] clonazePAM [Klonopin] 1 mg PO BEDTIME PRN 01/06/14 [History] Loratadine [Claritin] 10 mg PO DAILY PRN 11/24/14 [History] Bismuth Subsalicylate [Bismatrol] 2 tab PO QID 02/22/16 [History] Fluticasone Propionate [Flonase] 2 spray REFUGIO DAILY 02/22/16 [History] Fluticasone Propionate [Flovent] 2 puff INH BID PRN 02/22/16 [History] Nortriptyline 20 mg PO BEDTIME 10/26/17 [History] Atropine/Diphenoxylate [Diphenoxylate-Atropine] 1 - 2 tab PO ASDIRECTED PRN [History] Azelastine [Astelin Nasal Soln] 1 spray REFUGIO BID PRN 02/11/18 [History] Lisinopril [Zestril] 20 mg PO DAILY 02/11/18 [History] Nitroglycerin [Nitrostat] 0.4 mg SL ASDIRECTED 02/11/18 [History] Citalopram Hydrobromide [Celexa] 10 mg PO DAILY 02/04/19 [History] Cyanocobalamin (Vitamin B-12) [Cyanocobalamin Injection] 1,000 mcg IJ .[id number] 02/04/19 [History] EPINEPHrine [Epipen] 0.3 mg IM ASDIRECTED 02/04/19 [History] Fluticasone Propionate [Flovent HFA 110 MCG] 1 puff INH BID 02/04/19 [History] Levalbuterol Tartrate [Xopenex HFA] 2 puff INH Q4H PRN 02/04/19 [History] Past Medical History HEENT History: Reports: Allergic Rhinitis, Cataract, Impaired Vision, Sinusitis Cardiovascular History: Reports: CAD, Heart Murmur, Hypertension, [place] Respiratory History: Reports: Asthma, Bronchitis, Recurrent, COPD, Sleep Apnea Gastrointestinal History: Reports: Chronic Diarrhea, Colon Polyp, Diverticulosis , GERD, Hepatitis, Hiatal Hernia, Other (See Below) Other Gastrointestinal History: colitis; Stage III ALARCON (non-alcoholic steah hepatitis) 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: Polycystic Ovaries, Musculoskeletal History: Reports: Arthritis, Back Pain, Chronic, Fibromyalgia, Osteoarthritis, Other (See Below) Other Musculoskeletal History: degenerative arthritis Neurological History: Reports: Migraines, Neuropathy, Diabetic, Neuropathy, Peripheral Psychiatric History: Reports: Anxiety, Depression Endocrine/Metabolic History: Reports: Diabetes, Type II, Hypothyroidism, Obesity /BMI 30+ Hematologic History: Reports: Blood Transfusion(s) Oncologic (Cancer) History: Reports: Breast - Infectious Disease History Infectious Disease History: Reports: Chicken Pox, Hepatitis non A,B,C, Measles, Mumps, Rubella, Shingles, Other (See Below) Other Infectious Disease History: ALARCON - Past Surgical History HEENT Surgical History: Reports: Cataract Surgery Cardiovascular Surgical History: Reports: None Respiratory Surgical History: Reports: None GI Surgical History: Reports: Colonoscopy, EGD, Christophe Fundoplication Female Surgical History: Reports: Breast Biopsy, Hysterectomy Endocrine Surgical History: Reports: None Neurological Surgical History: Reports: None Musculoskeletal Surgical History: Reports: Arthroscopic Knee, Knee Replacement Oncologic Surgical History: Reports: Mastectomy Other Oncologic Surgeries/Procedures: bilat mastectomy with lymph node dissection Dermatological Surgical History: Reports: None, Other (See Below) Social & Family History - Tobacco Use Smoking Status *Q: Never Smoker - Caffeine Use Caffeine Use: Reports: Tea - Recreational Drug Use Recreational Drug Use: No ED ROS GENERAL - Review of Systems Review Of Systems: See Below Constitutional: Reports: No Symptoms HEENT: Reports: No Symptoms Respiratory: Reports: No Symptoms Cardiovascular: Reports: Blood Pressure Problem Endocrine: Reports: No Symptoms GI/Abdominal: Reports: No Symptoms : Reports: No Symptoms Musculoskeletal: Reports: No Symptoms Skin: Reports: No Symptoms Neurological: Reports: Headache (Headache is mild no different from her usual headaches) Psychiatric: Reports: No Symptoms Hematologic/Lymphatic: Reports: No Symptoms ED EXAM, GENERAL - Physical Exam Exam: See Below Exam Limited By: No Limitations General Appearance: Alert, WD/WN, No Apparent Distress Eye Exam: Bilateral Eye: Normal Inspection Nose: Normal Inspection Throat/Mouth: Normal Inspection Neck: Normal Inspection Respiratory/Chest: Lungs Clear Cardiovascular: Regular Rate, Rhythm, No Murmur Peripheral Pulses: 2+: Radial (L), Radial (R) Extremities: Normal Inspection Neurological: Alert, Normal Cognition Psychiatric: Normal Affect Skin Exam: Warm, Dry Course - Vital Signs Last Recorded V/S: Last Vital Signs Temp 36.1 C 02/09/19 10:59 Pulse 74 02/09/19 11:10 Resp 18 02/09/19 11:10 BP 204/94 H 02/09/19 11:10 Pulse Ox 95 02/09/19 11:10 - Re-Assessments/Exams Free Text/Narrative Re-Assessment/Exam: 02/09/19 11:59 Clinic records from February 01 was reviewed. Her blood pressure. Be under good control then. Medications were reviewed. She did have a blood chemistry everything looked good. No thyroid testing was done but she is only getting 50 g of Synthroid daily. Blood pressure cuff was changed from the regular adult to the large adult cuff subsequent blood pressures have been more normal. Last one was in the 150s. Departure - Departure Time of Disposition: 12:01 Disposition: Home, Self-Care 01 Condition: Fair Clinical Impression: Uncontrolled hypertension Referrals: Remy Myers MD [Primary Care Provider] - Forms: ED Department Discharge Additional Instructions: Continue all your usual medications. Consider getting a large adult low pressure cuff for use at home. When you check your blood pressure you should be sitting upright in a high backed chair for 5 minutes and nice and relaxed. If you are ill. Had headache or anything like that that may make your blood pressure go up. Plan to see Dr. York again within about a week to discuss the blood pressure problem
[2019-02-09 12:18] VITALS: BP 150/65
== END 2019-02-09 12:18 | disposition home or self-care (01) ==
LOC: JP.ED 10:39
DX: I10 Essential (primary) hypertension (principal); E11.40 Type 2 diabetes mellitus with diabetic neuropathy, unspecified; F41.9 Anxiety disorder, unspecified; F32.9 Major depressive disorder, single episode, unspecified; I25.2 Old myocardial infarction; J44.9 Chronic obstructive pulmonary disease, unspecified; K21.9 Gastro-esophageal reflux disease without esophagitis; Z88.8 Allergy status to other drugs, medicaments and biological substances; Z88.1 Allergy status to other antibiotic agents; Z88.2 Allergy status to sulfonamides; Z88.6 Allergy status to analgesic agent; Z91.041 Radiographic dye allergy status; Z79.899 Other long term (current) drug therapy
CPT/HCPCS: 99282; 99283

== ENCOUNTER 2021-05-20 06:32 | Day surgery (SDC) | payer MEDICARE, BC ==
[2021-05-20] MEDS ORDERED: fentaNYL 100 MCG/2 ML SDV ONE (07:07)
[2021-05-20] MEDS ORDERED: Propofol 200 MG/20 ML SDV ONE (07:07)
[2021-05-20] MEDS ORDERED: Dextrose 5%-Lactated Ringers 1,000 ML IV SCH (07:30)
[2021-05-20] MEDS: Pantoprazole 40 MG Vial IVPUSH ONE (08:19)
[2021-05-20 09:49] VITALS: BP 127/76; PULSE 63
--- NOTE | 2021-06-01 13:59 | OR ---
DATE OF PROCEDURE: 05/20/2021 SURGEON: Rodney Ramirez MD PREOPERATIVE DIAGNOSIS: Intermittent heartburn and dysphagia status post Christophe fundoplication. POSTOPERATIVE DIAGNOSES: 1. Intermittent heartburn and dysphagia status post Christophe fundoplication. 2. No gross inflammation in the esophagogastric junction with intact Christophe fundoplication. 3. Moderate-sized gastric bezoar with mild antral gastritis. PROCEDURE PERFORMED: Esophagogastroduodenoscopy with antral biopsies for CLOtest. ANESTHESIA: IV sedation. INDICATION FOR PROCEDURE: A 80-year-old status post previous Christophe fundoplication, presenting with some intermittent heartburn and dysphagia referable to the distal esophagus. The plan is to proceed with upper endoscopy with biopsies as indicated. Potential risks including bleeding and perforation were discussed, and the patient wishes to proceed. DETAILS OF PROCEDURE: The patient was taken to the operating room and placed in a left lateral decubitus position. IV sedation was administered after which the upper GI endoscope was passed orally through the length of the esophagus and the stomach with retroflexion view of the fundus, and thereafter, through the pyloric channel and into the junction of the third and fourth portions of the duodenum. Findings included no gross inflammation in the hypopharynx, larynx, upper esophageal sphincter, or esophageal body. At the EG junction, the patient had an intact Christophe fundoplication, and again, there was no gross inflammation present. The scope easily passed through the area of the fundoplication. In the stomach, there was a large amount of retained food consistent with a gastric bezoar. With this, there was mild gastritis strictly in the antrum. The pyloric channel was widely open, i.e., there was no mechanical obstruction to the outlet of the stomach, and the visualized portions of the duodenum were unremarkable. One additional note is that the patient has a history of ALARCON, and we did not see any evidence of any esophageal or gastric varices during the examination. At this point, biopsies were obtained from the antrum and sent for CLOtest for H pylori. Minimal bleeding from the biopsy site was seen, and the procedure was then concluded. The plan at this point will be to instruct the patient and do an anti-bezoar diet. We will begin Protonix 40 mg today hopefully to decrease the amount of gastric secretions which may reduce the volume of the content within the stomach that might be prone to reflux above the otherwise intact Christophe fundoplication, and followup with Dr. Myers will be in one month. If the patient continues to be plagued with continued symptoms, especially if workup on symptoms such as nighttime aspiration appear, then surgical consultation should be once again undertaken to consider a more aggressive revision of the ingested food from the stomach which at this point is obviously involved in a significant element of gastroparesis. Rodney Ramirez MD /[id number]
== END 2021-05-20 10:05 | disposition home or self-care (01) ==
LOC: JP.SDS 06:32
PROVIDERS: ATTEND Surgery
DX: K29.70 Gastritis, unspecified, without bleeding (principal); G47.33 Obstructive sleep apnea (adult) (pediatric); I25.10 Atherosclerotic heart disease of native coronary artery without angina pectoris; E11.9 Type 2 diabetes mellitus without complications; E03.9 Hypothyroidism, unspecified; I25.2 Old myocardial infarction; Z98.84 Bariatric surgery status
CPT/HCPCS: 43239; 87081; C9113; J2704; J3010; J7121

== ENCOUNTER 2021-07-08 09:26 | Emergency (ER) | payer MEDICARE, BC ==
[2021-07-08 11:30] VITALS: BP 158/74; PULSE 81
--- NOTE | 2021-07-08 12:02 | EDM.PDOC ---
ED HPI GENERAL MEDICAL PROBLEM - General Chief Complaint: General Stated Complaint: LIGHTHEADED Time Seen by Provider: 07/08/21 09:50 Source of Information: Reports: Patient History Limitations: Reports: No Limitations - History of Present Illness INITIAL COMMENTS - FREE TEXT/NARRATIVE: pt has been dealing with being very weak for about 1 week. She has episodes when she stands up where she feels like she is going to pass out. She is on alot of bp meds. Onset: Gradual Duration: Day(s):, Waxing/Waning Location: Reports: Generalized, Other (pt gets sweaty and feels like she is going to pass out. ) Associated Symptoms: Reports: Shortness of Breath, Weakness - Related Data Allergies Allergy/AdvReac Type Severity Reaction Status Date / Time [id number] Reductase Allergy Severe Muscle Verified 07/08/21 09:43 Inhibitor Aches Sulfa (Sulfonamide Allergy Intermediate Shortness Verified 07/08/21 09:43 Antibiotics) of Breath aspirin Allergy Nausea Verified 07/08/21 09:43 blue dye Allergy Cannot Verified 07/08/21 09:43 Remember glimepiride [From Amaryl] Allergy Wheezing Verified 07/08/21 09:43 pravastatin Allergy Abdominal Verified 07/08/21 09:43 Pain azithromycin AdvReac Diarrhea Verified 07/08/21 09:43 metformin AdvReac Diarrhea Verified 07/08/21 09:43 tetracycline [Tetracycline] AdvReac Nausea and Verified 07/08/21 09:43 Vomiting Home Meds: Home Meds Levothyroxine Sodium [Levoxyl] 50 mcg PO DAILY 01/06/14 [History] Metoprolol Tartrate [Lopressor] 100 mg PO BID 01/06/14 [History] SUMAtriptan [Imitrex] 50 mg PO ASDIRECTED PRN 01/06/14 [History] clonazePAM [Klonopin] 1 mg PO BEDTIME PRN 01/06/14 [History] levalbuterol HCL [Xopenex] 0.3 mg NEB Q8H PRN 01/06/14 [History] Bismuth Subsalicylate [Bismatrol] 2 tab PO QID PRN 02/22/16 [History] Fluticasone Propionate [Flonase] 2 spray REFUGIO DAILY 02/22/16 [History] Fluticasone Propionate [Flovent] 2 puff INH BID PRN 02/22/16 [History] Nortriptyline 20 mg PO BEDTIME 10/26/17 [History] Azelastine [Astelin Nasal Soln] 1 spray REFUGIO BID PRN 02/11/18 [History] Nitroglycerin [Nitrostat] 0.4 mg SL ASDIRECTED 02/11/18 [History] Cyanocobalamin (Vitamin B-12) [Cyanocobalamin Injection] 1,000 mcg IM ASDIRECTED 02/04/19 [History] EPINEPHrine [Epipen] 0.3 mg IM ASDIRECTED 02/04/19 [History] Levalbuterol Tartrate [Levalbuterol Tartrate Hfa] 2 puff IH Q4H PRN 08/24/19 [History] Lisinopril 20 mg PO BID 08/24/19 [History] Triamcinolone Acetonide [Kenalog 0.1% Crm] 1 applic TOP BID 08/24/19 [History] Escitalopram Oxalate [Lexapro] 20 mg PO DAILY 05/15/21 [History] Furosemide 20 mg PO DAILY 05/15/21 [History] amLODIPine [Norvasc] 5 mg PO DAILY 05/15/21 [History] Pantoprazole [ProTONIX] 40 mg PO DAILY 07/08/21 [History] Past Medical History HEENT History: Reports: Allergic Rhinitis, Cataract, Impaired Vision, Sinusitis Cardiovascular History: Reports: CAD, Heart Murmur, Hypertension, MS Respiratory History: Reports: Asthma, Bronchitis, Recurrent, COPD, Sleep Apnea Gastrointestinal History: Reports: Chronic Diarrhea, Colon Polyp, Diverticulosis, GERD, Hepatitis, Hiatal Hernia, Other (See Below) Other Gastrointestinal History: colitis; Stage III ALARCON (non-alcoholic steah hepatitis), bezure 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 History: Reports: None [employer] 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: Polycystic Ovaries, Musculoskeletal History: Reports: Arthritis, Back Pain, Chronic, Fibromyalgia, Osteoarthritis, Other (See Below) Other Musculoskeletal History: degenerative arthritis Neurological History: Reports: Migraines, Neuropathy, Diabetic, Neuropathy, Peripheral, Other (See Below) Other Neuro History: rheumatic fever and had a relapse years ago Psychiatric History: Reports: Anxiety, Depression Endocrine/Metabolic History: Reports: Diabetes, Type II, Hypothyroidism, Obesity/BMI 30+ Hematologic History: Reports: Blood Transfusion(s) Oncologic (Cancer) History: Reports: Breast - Infectious Disease History Infectious Disease History: Reports: Chicken Pox, Hepatitis non A,B,C, Measles, Mumps, Rubella, Shingles, Other (See Below) Other Infectious Disease History: ALARCON - Past Surgical History HEENT Surgical History: Reports: Cataract Surgery Cardiovascular Surgical History: Reports: None Respiratory Surgical History: Reports: None GI Surgical History: Reports: Colonoscopy, EGD, Christophe Fundoplication Female Surgical History: Reports: Breast Biopsy, Hysterectomy Endocrine Surgical History: Reports: None Neurological Surgical History: Reports: None Musculoskeletal Surgical History: Reports: Arthroscopic Knee, Knee Replacement Oncologic Surgical History: Reports: Mastectomy Other Oncologic Surgeries/Procedures: bilat mastectomy with lymph node dissection Dermatological Surgical History: Reports: None, Other (See Below) Social & Family History - Family History Family Medical History: No Pertinent Family History - Tobacco Use Tobacco Use Status *Q: Never Tobacco User Second Hand Smoke Exposure: No - Caffeine Use Caffeine Use: Reports: Soda - Recreational Drug Use Recreational Drug Use: No ED ROS GENERAL - Review of Systems Review Of Systems: See Below Constitutional: Reports: Weakness, Diaphoresis HEENT: Reports: No Symptoms Respiratory: Reports: No Symptoms Cardiovascular: Reports: No Symptoms, Other (pt has had a history of palpitations and she does not have that sensation) Endocrine: Reports: No Symptoms, Other ( bs has been up and down. ) GI/Abdominal: Reports: No Symptoms : Reports: No Symptoms Musculoskeletal: Reports: No Symptoms Skin: Reports: No Symptoms ED EXAM, GENERAL - Physical Exam Exam: See Below Free Text/Narrative:: pt arrived with fatitorrie. She does get the sensation she is going to pass out and gets sweaty when she is up snd about. She has not had chest pain. Exam Limited By: No Limitations General Appearance: Alert, Mild Distress Ears: Normal TMs Nose: Normal Inspection Throat/Mouth: Normal Inspection Head: Atraumatic Neck: Normal Inspection Respiratory/Chest: No Respiratory Distress Cardiovascular: Regular Rate, Rhythm GI/Abdominal: Soft, Non-Tender (Female) Exam: Deferred Rectal (Female) Exam: Deferred Back Exam: Normal Inspection Extremities: Normal Inspection Neurological: Alert, Oriented, Normal Cognition Psychiatric: Anxious Course - Vital Signs Last Recorded V/S: Last Vital Signs Temp 36.6 C 07/08/21 09:44 Pulse 81 07/08/21 11:29 Resp 14 07/08/21 11:29 BP 158/74 H 07/08/21 11:29 Pulse Ox 99 07/08/21 11:29 Orthostatic Blood Pressure [ 133/61 Standing] Orthostatic Blood Pressure [ 139/66 Sitting] Orthostatic Blood Pressure [ 147/67 Supine] - Orders/Labs/Meds Labs: Laboratory Tests 07/08/21 07/08/21 07/08/21 Range/Units 10:14 10:20 10:20 WBC 7.3 (4.5-11.0) K/uL RBC 3.89 (3.30-5.50) M/uL Hgb 11.5 L (12.0-15.0) g/dL Hct 36.1 (36.0-48.0) % MCV 93 (80-98) fL MCH 30 (27-31) pg MCHC 32 (32-36) % Plt Count 227 (150-400) K/uL Neut % (Auto) 66.5 H (36-66) % Lymph % (Auto) 19.7 L (24-44) % [place] % (Auto) 10.3 H (2-6) % Eos % (Auto) 2.5 (2-4) % Baso % (Auto) 1.0 (0-1) % Sodium 141 (140-148) mmol/L Potassium 4.8 (3.6-5.2) mmol/L Chloride 101 (100-108) mmol/L Carbon Dioxide 28 (21-32) mmol/L Anion Gap 11.9 (5.0-14.0) mmol/L BUN 21 H (7-18) mg/dL Creatinine 1.1 H (0.6-1.0) mg/dL Est Cr Clr Drug Dosing 31.81 mL/min Estimated GFR (MDRD) 48 L (>60) Glucose 117 H (74-106) mg/dL Calcium 9.3 (8.5-10.1) mg/dL Total Bilirubin 0.4 (0.2-1.0) mg/dL AST 12 L (15-37) U/L ALT 15 (12-78) U/L Alkaline Phosphatase 59 (46-116) U/L Total Protein 7.2 (6.4-8.2) g/dL Albumin 3.7 (3.4-5.0) g/dL Globulin 3.5 (2.3-3.5) g/dL Albumin/Globulin Ratio 1.1 L (1.2-2.2) Urine Color Yellow (YELLOW) Urine Appearance Clear (CLEAR) Urine pH 5.5 (5.0-8.0) Ur Specific Nursery 1.025 (1.008-1.030) Urine Protein Negative (NEGATIVE) mg/dL Urine Glucose (UA) Negative (NEGATIVE) mg/dL Urine Ketones Negative (NEGATIVE) mg/dL Urine Occult Blood Negative (NEGATIVE) Urine Nitrite Negative (NEGATIVE) Urine Bilirubin Negative (NEGATIVE) Urine Urobilinogen 0.2 (0.2-1.0) EU/dL Ur Leukocyte Esterase Negative (NEGATIVE) Urine RBC 0-5 (0-5) Urine WBC 0-5 (0-5) Ur Epithelial Cells Rare Amorphous Sediment Not seen Urine Bacteria Few Urine Mucus Not seen Departure - Departure Time of Disposition: 12:01 Disposition: Home, Self-Care 01 Condition: Fair Clinical Impression: Hypotension, postural - Discharge Information Instructions: Orthostatic Hypotension Referrals: Remy Myers MD [Primary Care Provider] - Forms: ED Department Discharge Care Plan Goals: push fluids, decrease lisinopril to 10mg daily--1/[address] myers in 1 week. Sepsis Event Note (ED) - Evaluation Sepsis Screening Result: No Definite Risk - Focused Exam Vital Signs: Vital Signs Temp Pulse Resp BP Pulse Ox 07/08/21 11:29 81 14 158/74 H 99 07/08/21 11:26 82 14 179/84 H 96 07/08/21 09:44 36.6 C 77 12 141/68 H 99
== END 2021-07-08 12:12 | disposition home or self-care (01) ==
LOC: JP.ED 09:26
DX: I95.1 Orthostatic hypotension (principal); I25.10 Atherosclerotic heart disease of native coronary artery without angina pectoris; I10 Essential (primary) hypertension; I25.2 Old myocardial infarction; J44.9 Chronic obstructive pulmonary disease, unspecified; E11.42 Type 2 diabetes mellitus with diabetic polyneuropathy; E03.9 Hypothyroidism, unspecified; K21.9 Gastro-esophageal reflux disease without esophagitis; E66.9 Obesity, unspecified; Z68.28 Body mass index [BMI] 28.0-28.9, adult; Z88.8 Allergy status to other drugs, medicaments and biological substances; Z88.2 Allergy status to sulfonamides; Z88.6 Allergy status to analgesic agent; Z88.1 Allergy status to other antibiotic agents
CPT/HCPCS: 36415; 80053; 81001; 85025; 99284

== ENCOUNTER 2022-03-10 12:24 | Emergency (ER) | payer MEDICARE, BC ==
[2022-03-10 15:22] VITALS: BP 152/64
[2022-03-10 15:23] VITALS: PULSE 82
== END 2022-03-10 16:43 | disposition home or self-care (01) ==
LOC: JP.ED 12:24
DX: F43.9 Reaction to severe stress, unspecified (principal); I25.10 Atherosclerotic heart disease of native coronary artery without angina pectoris; I10 Essential (primary) hypertension; I25.2 Old myocardial infarction; J44.9 Chronic obstructive pulmonary disease, unspecified; E11.42 Type 2 diabetes mellitus with diabetic polyneuropathy; E03.9 Hypothyroidism, unspecified; E66.9 Obesity, unspecified; Z88.2 Allergy status to sulfonamides; Z91.041 Radiographic dye allergy status; Z88.8 Allergy status to other drugs, medicaments and biological substances; Z88.1 Allergy status to other antibiotic agents; Z79.899 Other long term (current) drug therapy; Z68.29 Body mass index [BMI] 29.0-29.9, adult
CPT/HCPCS: 36415; 80053; 81001; 85025; 87086; 99282; 99283

== ENCOUNTER 2023-04-09 07:12 | Day surgery (SDC) | payer MEDICARE, BC ==
[~2023-04-09 07:12] MED LIST changes: +Propofol 200 MG/20 ML SDV ONE; -fentaNYL 100 MCG/2 ML SDV ONE; +fentaNYL 50 MCG/ML SDV ONE
[2023-04-09] MEDS ORDERED: Dextrose 5%-Lactated Ringers 1,000 ML IV SCH (08:00)
[2023-04-09] MEDS ORDERED: Propofol 200 MG/20 ML SDV ONE (09:31)
[2023-04-09 11:12] VITALS: PULSE 74
[2023-04-09 11:13] VITALS: BP 133/69
== END 2023-04-09 11:31 | disposition home or self-care (01) ==
LOC: JP.SDS 07:12
PROVIDERS: ATTEND Surgery
DX: K57.30 Diverticulosis of large intestine without perforation or abscess without bleeding (principal); K29.50 Unspecified chronic gastritis without bleeding; K58.0 Irritable bowel syndrome with diarrhea; K21.9 Gastro-esophageal reflux disease without esophagitis; I10 Essential (primary) hypertension; I25.10 Atherosclerotic heart disease of native coronary artery without angina pectoris; Z79.899 Other long term (current) drug therapy; Z98.890 Other specified postprocedural states
CPT/HCPCS: 43239; 45380; 87046; 87081; 87177; 87209; 87493; 87899; 88305; 89055; J2704; J3010; J7121

== ENCOUNTER 2024-11-19 12:05 | Emergency (ER) | payer MEDICARE, BC ==
[2024-11-19 12:34] VITALS: BP 127/55; PULSE 75
[2024-11-19 13:00] LABS: BASOPHILS ABSOLUTE AUTO 0.08 K/uL (0.00-0.10); BASOPHILS PERCENT AUTO 0.9 % (0.1-1.3); EOSINOPHILS PERCENT AUTO 2.3 % (0.0-5.4); HEMATOCRIT 35.4 % (34.3-46.0); HEMOGLOBIN 11.8 g/dL (11.2-15.5); IMMATURE GRAN ABSOLUTE AUTO 0.04 K/uL (0.00-0.23); IMMATURE GRAN PERCENT AUTO 0.5 % (0.0-0.7); LYMPHOCYTES PERCENT AUTO 14.8 % (11.4-47.7); MEAN CORPUSCULAR HEMOGLOBIN 31.6 pg (31.6-35.5); MEAN CORPUSCULAR HGB CONC 33.3 g/dL (31.6-35.5); MEAN CORPUSCULAR VOLUME 94.9 fL (81.4-99.0); NEUTROPHILS ABSOLUTE AUTO 6.46 K/uL (1.0-7.6); NEUTROPHILS PERCENT AUTO 73.5 % (40.0-78.1); PLATELET COUNT,PLT 193 K/uL (130-375); RED BLOOD CELL COUNT 3.73 M/uL (3.77-5.24); WHITE BLOOD CELL COUNT,WBC 8.8 K/uL (3.2-11.0)
[2024-11-19 13:21] LABS: CALCIUM 9.3 mg/dL (8.5-10.1); CREATININE 1.6 mg/dL (0.6-1.0); EST CRCL DRUG DOSING (CG) 20.46 mL/min; POTASSIUM,K 4.8 mmol/L (3.6-5.2)
[2024-11-19 13:22] LABS: ANION GAP 13.8 mmol/L (5.0-14.0)
[2024-11-19 13:37] LABS: SEDIMENTATION RATE MANUAL 22 mm/hr (0-25)
== END 2024-11-19 15:23 | disposition home or self-care (01) ==
LOC: JP.ED 12:05
DX: S92.422A Displaced fracture of distal phalanx of left great toe, initial encounter for closed fracture (principal); I25.10 Atherosclerotic heart disease of native coronary artery without angina pectoris; I25.2 Old myocardial infarction; I10 Essential (primary) hypertension; J44.89 Other specified chronic obstructive pulmonary disease; E11.42 Type 2 diabetes mellitus with diabetic polyneuropathy; E03.9 Hypothyroidism, unspecified; E66.9 Obesity, unspecified; Z90.710 Acquired absence of both cervix and uterus; Z96.659 Presence of unspecified artificial knee joint; Z88.2 Allergy status to sulfonamides; Z88.1 Allergy status to other antibiotic agents; Z88.8 Allergy status to other drugs, medicaments and biological substances; Z91.041 Radiographic dye allergy status; Z79.890 Hormone replacement therapy; Z79.899 Other long term (current) drug therapy; Z68.28 Body mass index [BMI] 28.0-28.9, adult; X58.XXXA Exposure to other specified factors, initial encounter
CPT/HCPCS: 36415; 73660-26-TA; 73660-TA; 80048; 85025; 85651; 86140; 99283